=== PATIENT | female | born 1960 | race Caucasian/White ===

== ENCOUNTER 2016-08-19 04:17 | Observation (INO) | payer BC ==
[2016-08-19 05:04] LABS: Hematocrit 37 % (35-47); Hemoglobin 12.3 g/dl (12.0-16.0); Mean Corpuscular HGB Conc 33 g/dl (31-36); Mean Corpuscular Hemoglobin 30 pg (27-31); Mean Corpuscular Volume 91 fL (80-97); Mean Platelet Volume 9 um3 (7.4-10.4); Red Blood Count 4.07 10^6/ul (4.0-5.4); Red Cell Distribution Width 17 % (10.5-15); White Blood Count 4.6 10^3/ul (3.5-10.8)
[2016-08-19 05:07] LABS: BUN/Creatinine Ratio 13.8 (8-20); Calcium 9.2 mg/dL (8.6-10.3); EGFR Non-African American 52.1 (>60); Globulin 2.8 g/dL (2-4); Potassium 3.7 mmol/L (3.5-5.0); Total Bilirubin 0.5 mg/dL (0.2-1.0); Total Protein 6.8 g/dL (6.4-8.9)
[2016-08-19 05:09] LABS: Troponin I 0.01 ng/mL (<0.04)
--- NOTE | 2016-08-19 06:30 | ED ---
Jose Manuel Laurent SooYoung, scribed for Kain Ram on 08/19/16 at 0431 . HPI Chest Pain - HPI Summary HPI Summary: A 55 y/o F CL presents to ED with intermittent CP onset [employer]OR[employer]. She was given ASA from EMS. She states pain is still present in ED, describes it as "more dull " and "tightness." Denies: dizziness, SOB, pedal edema. She woke up to use the bathroom and went back to sleep. She had 3 episodes, lasting a few minutes each. Movements and deep breaths do not aggravate the pain. Neg FHx of cardiac problems. No PMHx of cardiovascular problems, HTN. - History of Current Complaint Chief Complaint: ED Hx Obtained From: Patient Onset/Duration: Still Present Timing: Intermittent, Lasting Minutes Pain Intensity: 7 Pain Scale Used: 0-10 Numeric Chest Pain Location: Diffuse Character: Tightness Associated Signs and Symptoms: Negative: Dizziness, Shortness of Breath, Calf Pain/Swelling - Allergy/Home Medications Allergies/Adverse Reactions: Allergies Allergy/AdvReac Type Severity Reaction Status Date / Time Ampicillin Allergy Unknown Unknown Verified 08/19/16 04:20 Reaction Details Cephalexin [From Keflex] Allergy Unknown Unknown Verified 08/19/16 04:20 Reaction Details Erythromycin Allergy Unknown Unknown Verified 08/19/16 04:20 Reaction Details Latex Allergy Unknown Unknown Verified 08/19/16 04:20 Reaction Details Penicillin G Allergy Unknown Unknown Verified 08/19/16 04:20 Reaction Details Home Medications: Home Medications Bupropion XL (NF) [Wellbutrin XL (NF)] 300 mg PO DAILY 08/19/16 [History Confirmed 08/19/16] Cholecalciferol [Vitamin D-3] 2,000 unit PO DAILY 08/19/16 [History Confirmed ] Cyanocobalamin [Vitamin B-12] 2,500 mcg SL DAILY 08/19/16 [History Confirmed ] Ferrous Sulfate Dried [Slow Release Iron] 45 mg PO DAILY 08/19/16 [History Confirmed 08/19/16] Fexofenadine HCl [Allergy 24-Hr] 180 mg PO DAILY 08/19/16 [History Confirmed ] Fluoxetine HCl [Prozac] 20 mg PO DAILY 08/19/16 [History Confirmed 08/19/16] PMH/Surg Hx/FS Hx/Imm Hx Previously Healthy: No Cardiovascular History: Reports: Hx Hypercholesterolemia GI History: Reports: Hx Gastroesophageal Reflux Disease Psychiatric History: Reports: Hx Depression Infectious Disease History: No Infectious Disease History: Denies: Traveled Outside the [place] in Last 30 Days - Family History Known Family History: Negative: Cardiac Disease - Social History Occupation: Employed Full-time Lives: Alone Review of Systems Positive: Chest Pain Negative: Shortness Of Breath Negative: Edema Neurological: Other - neg: dizziness All Other Systems Reviewed And Are Negative: Yes Physical Exam Triage Information Reviewed: Yes Vital Signs On Initial Exam: Initial Vitals Temp Pulse Resp BP Pulse Ox 97.8 F 64 16 148/90 95 08/19/16 04:18 08/19/16 04:18 08/19/16 04:18 08/19/16 04:18 08/19/16 04:18 Vital Signs Reviewed: Yes Appearance: Positive: Well-Appearing, No Pain Distress Skin: Positive: Warm, Skin Color Reflects Adequate Perfusion, Dry Head/Face: Positive: Normal Head/Face Inspection Eyes: Positive: EOMI, MAUREEN ENT: Positive: Normal ENT inspection Neck: Positive: Supple, Nontender Respiratory/Lung Sounds: Positive: Clear to Auscultation, Breath Sounds Present Cardiovascular: Positive: RRR, Pulses are Symmetrical in both Upper and Lower Extremities Abdomen Description: Positive: Nontender, Soft Bowel Sounds: Positive: Present Musculoskeletal: Positive: Normal, Strength/ROM Intact - 4xFROM Neurological: Positive: Normal, Sensory/Motor Intact, Alert, Oriented to Person Place, Time Diagnostics - Vital Signs Vital Signs Temp Pulse Resp BP Pulse Ox 08/19/16 04:18 97.8 F 64 16 148/90 95 - Laboratory Result Diagrams: 08/19/16 04:31 08/19/16 04:31 Lab Statement: Any lab studies that have been ordered have been reviewed, and results considered in the medical decision making process. - Radiology CXR Xray Interpretation: No Acute Changes Radiology Interpretation Completed By: ED Physician - EKG 1 EKG Rhythm: Sinus Rhythm EKG Interpretation: Q-waves in V2, V3 Chest Pain Course/Dx - Course Course Of Treatment: MDM: A 55 y/o F presents with intermittent CP. Given ASA by EMS on way to ED. EKG shows Q-waves in V2 and V3. CXR is nml. Troponin was 0.01. Spoke with Hospitalist, will admit. - Diagnoses Provider Diagnoses: chest pain ADDISON - Provider Notifications Discussed Care Of Patient With: Dr. Gonzalez, hospitalist Time Discussed With Above Provider: 04:32 Instructed by Provider To: Admit As Inpatient Discharge - Discharge Plan Condition: Stable Disposition: ADMITTED TO [facility] Referrals: Wilder Berrios MD [Primary Care Provider] - The documentation as recorded by the Jose Manuel crzu SooYoung accurately reflects the service I personally performed and the decisions made by Yo rose Emmanuel.
--- NOTE | 2016-08-19 07:59 | RAD ---
INDICATION: Chest pain COMPARISON: None. TECHNIQUE: Single AP portable view of the chest was obtained. FINDINGS: Image quality is compromised due to the relative inferiority of a portable chest x-ray. The heart and mediastinum exhibit normal size and contour. The lungs are grossly clear. There is no evidence of a large pleural effusion. Visualized bones are normal for the patient's age. IMPRESSION: No radiographic evidence for acute cardiopulmonary abnormality on this portable chest x-ray.
[2016-08-19] MEDS ORDERED: Ibuprofen TAB* 600 MG PO ONE (09:07)
--- NOTE | 2016-08-19 11:06 | RAD ---
HISTORY: Right upper quadrant pain COMPARISONS: March 14, 2006 CT TECHNIQUE: Multiple transverse and longitudinal ultrasound images were obtained of the right upper quadrant of the abdomen using grayscale and color Doppler imaging. FINDINGS: LIVER: The liver is slightly echogenic and coarse in echotexture, with decreased acoustic transmission. The liver is otherwise normal in shape, size, and contour. There is normal hepatopedal flow of the portal vein on Doppler imaging. BILIARY TREE: There is no intrahepatic or extrahepatic biliary dilatation. The common duct measures 0.2 cm. GALLBLADDER: The gallbladder is well-visualized. There is no cholelithiasis, gallbladder wall thickening, pericholecystic fluid, or sonographic Biswas sign. PANCREAS: The head of the pancreas is unremarkable. The tail of the pancreas is not well visualized secondary to overlying bowel gas. RIGHT KIDNEY: The right kidney is normal in shape, size, contour, and echogenicity. There is no hydronephrosis or nephrolithiasis. The right kidney measures 10.2 x 3.9 x 6 cm. AORTA AND IVC: The aorta and IVC are unremarkable. FLUID: There are no pleural effusions. There is no free fluid within the hepatorenal recess. OTHER FINDINGS: None. IMPRESSION: SLIGHTLY ECHOGENIC LIVER SUGGESTIVE OF FATTY INFILTRATION
[2016-08-19] MEDS: Enoxaparin(*) 40 MG/0.4 ML SYR SUBCUT SCH (16:03)
[2016-08-19] MEDS: BuPROPion XL* 300 MG TAB.XL PO SCH (16:03)
[2016-08-19] MEDS: FLUoxetine CAP* 20 MG PO SCH (16:03)
--- NOTE | 2016-08-19 17:39 | HP ---
HISTORY AND PHYSICAL: DATE OF ADMISSION: 08/19/16 PRIMARY CARE PROVIDER: Dr. Berrios. CHIEF COMPLAINT: Chest pain. HISTORY OF PRESENT ILLNESS: Ms. Arora is a 55-year-old female with a history of hyperlipidemia, obesity, depression, and seasonal allergies, who presents to the emergency room with complaints of chest pain. The patient states that her pain began initially around 2 a.m. when she was awoken from sleep with the pain. She got up, went to the bathroom and pain was noted. She then lied back down, believes that she fell back to sleep, but then woke up again and had pain again. The patient did this another two more times and continued to have episodes of pain. The pain duration was approximately 1 to 2 minutes each time she had the pain. She felt that it was a sharp, burst-like feeling in her right chest. She denied any associated shortness of breath, nausea, vomiting, or sweats. The patient states that she had chest pain in the past and was seen by Cardiology several years ago; however, that was for left-sided chest pain and now, this is right center chest pain. The patient does also state that when EMS picked her up, she was having pain more consistent in the right chest. She felt this almost as if there was a vise around the right lower chest. She believes that nitroglycerin paste helped with the pain. PAST MEDICAL HISTORY: 1. Hyperlipidemia. 2. Seasonal allergies. 3. Depression. PAST SURGICAL HISTORY: Neck abscess treatment. MEDICATIONS: 1. Vitamin D3 2000 units p.o. daily. 2. Vitamin B12 2500 mcg sublingual daily. 3. Ferrous sulfate slow release 45 mg p.o. daily. 4. Whitney 180 mg p.o. daily. 5. Wellbutrin XL 300 mg p.o. daily. 6. Prozac 20 mg p.o. daily. 7. Omeprazole 20 mg p.o. b.i.d. 8. Singulair 10 mg p.o. q.h.s. 9. Simvastatin 20 mg p.o. daily. ALLERGIES: PENICILLIN, KEFLEX, and ERYTHROMYCIN. FAMILY HISTORY: Dad at the age of 77 related to complications of an infection. He had an CA in his 70s. He also had history of heart failure. Mom is living, she is 77. Has a history of depression and hyperlipidemia. The patient has no biologic siblings. SOCIAL HISTORY: The patient is a life-long nonsmoker. She does state that her partner smokes. She drinks approximately 3 ounces of alcohol per day. 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 Her partner, Deneen Peterson, phone number [phone], is her healthcare proxy. She has no children of her own. REVIEW OF SYSTEMS: She denies any fevers, chills, or anorexia. She admits to chest pain as above. No edema. No palpitations. No cough. No shortness of breath. No nausea or vomiting. She does state that she had diarrhea this past Tuesday, but it has now resolved. No abdominal pain. No hematochezia. No hematuria. No dysuria. No focal weakness or sensory loss. No sudden changes in vision. No dysphagia. No joint pains or muscle pains out of ordinary. No rashes. She does admit to depression. PHYSICAL EXAMINATION GENERAL: The patient is a well-developed, obese, middle-aged female, sitting in the stretcher, in no acute distress. VITAL SIGNS: Blood pressure 132/82, pulse 67, respirations 15, temp 98.3, O2 sat 95% on room air. HEENT: Pupils are equal, they are round, they react to light. Extraocular muscles are intact. Oropharynx is clear. Oral mucosa is moist. NECK: There is no submandibular, cervical, or supraclavicular adenopathy. Thyroid is not enlarged. No thyroid nodules noted. PULMONARY: Lungs are clear to auscultation bilaterally. CARDIAC: Normal S1, S2. Regular rate and rhythm. No murmurs. There is no lower extremity edema. ABDOMEN: Bowel sounds present. Abdomen is soft, nontender, nondistended. MUSCULOSKELETAL: There is no cyanosis or clubbing of the digits. There is full active range of motion of all 4 extremities. NEURO: Cranial nerves II through XII are grossly intact. Sensation is intact to light touch throughout. Strength is 5/5 and symmetric, both upper and lower extremities bilaterally. PSYCH: The patient is alert. She is oriented x3. Affect appears appropriate. SKIN: Warm and dry. There are no rashes. DIAGNOSTIC STUDIES/LAB DATA: WBC 4.6, hemoglobin 12.3, hematocrit 37, platelets 140. INR 0.88. Sodium 137, potassium 3.7, chloride 105, CO2 24, BUN 15, creatinine 1.09, glucose 109, calcium 9.2. Bilirubin 0.5, AST 19, ALT 18, alk phos 52. Troponin 0.01. Albumin 4.0. EKG: Normal sinus rhythm without any acute ST-T wave abnormalities. Chest x-ray: No radiographic evidence for acute cardiopulmonary abnormality. Gallbladder ultrasound: Slightly echogenic liver suggestive of fatty infiltration. ASSESSMENT AND PLAN: Ms. Arora is a 55-year-old female with a history of hyperlipidemia, obesity, and late-onset family history of coronary artery disease, who presents to the emergency room with complaints of chest pain. 1. Chest pain: The patient's story is not completely suggestive of coronary artery disease; however, she does have risk factors for coronary artery disease. Plan will be to admit the patient to [facility] to obtain a stress test. The patient has already had two troponins that are 0.01 and stable. Once the stress test is completed, the patient will be able to be discharged home. However, if the patient has a positive stress test, Cardiology consultation will be requested. We will maintain her on her usual dose of her home statin. 2. Depression: The patient will be maintained on her usual doses of Wellbutrin XL and Prozac. 3. DVT prophylaxis: According to the Adult Thrombosis Prophylaxis Risk Factor Assessment Guide, the patient has a total risk factor score of 3 making her high risk. She will be placed on Lovenox 40 mg subcutaneous q.24 hours. 4. Code status is full and again, the patient's partner, Deneen Peterson, is her healthcare proxy. TIME SPENT: Sixty-five minutes was spent admitting this patient. CC: Dr. Berrios* [id number]/[facility] #: [id number] JENNIFER
[2016-08-19] MEDS ORDERED: Montelukast Sodium TAB* 10 MG PO SCH (21:00)
[2016-08-19] MEDS: Omeprazole CAP* 20 MG PO SCH (21:03)
[2016-08-20 03:54] VITALS: BP 113/75
[2016-08-20] MEDS ORDERED: Atorvastatin* 10 MG TAB PO SCH (09:00)
[2016-08-20] MEDS ORDERED: Influenza VAC *QUAD* 2016-17* 0.5 ML SYRINGE IM ONE (09:00)
[2016-08-20] MEDS ORDERED: Pneumococcal *Vac Polyvalent 0.5 ML VIAL IM ONE (09:00)
--- NOTE | 2016-08-20 09:25 | RAD ---
HISTORY: Chest pain COMPARISONS: None TECHNIQUE: A 2 day stress/rest myocardial perfusion study was performed, with exercise stress. The exercise portion was performed using the Harris protocol, for a total METs of 10.1. The stress portion was monitored by Dr. Gonzalez. Gated SPECT imaging was performed, with CT-based attenuation correction DOSE: Stress: Technetium 99m tetrofosmin, 25.23 millicuries, injected at 1:50 PM on 08/19/2016 Rest: Technetium 99m tetrofosmin, 25.65 millicuries, injected at 6:30 AM on 08/20/2016 Pharmacologic agent: None FINDINGS: CARDIAC MONITORING: Peak heart rate of 149 bpm, 90% of predicted. No EKG changes of ischemia with stress. EF: 72 %, 62% with stress TID: 0.9 MOTION: Normal motion, with normal wall thickening. PERFUSION: There is apical hypoperfusion consistent with physiologic apical thinning. An area of reversibility noted on the attenuation corrected polar images felt to represent misregistration artifact. OTHER: None IMPRESSION: NORMAL EJECTION FRACTION. PHYSIOLOGIC APICAL THINNING. ASSESSMENT: LOW RISK. Based on imaging criteria from ACC/AHA 2002. Guideline Update for the Management of Patient's with Chronic Stable Angina, table 23. Noninvasive Risk Stratification.
--- NOTE | 2016-08-20 10:10 | PN ---
Subjective Date of Service: 08/20/16 Interval History: Pt is feeling well. She had a mild episode of R sided chest pain that she described as a pinching feeling. She is anxious to go home. Objective Active Medications: Atorvastatin Calcium (Lipitor*) 10 mg PO DAILY [facility] Bupropion HCl (Bupropion Xl*) 300 mg PO DAILY [facility] Last Admin: 08/19/16 16:03 Dose: 300 mg Enoxaparin Sodium (Lovenox(*)) 40 mg SUBCUT Q24H [facility] Last Admin: 08/19/16 16:03 Dose: 40 mg Fluoxetine HCl (Prozac Cap*) 20 mg PO DAILY [facility] Last Admin: 08/19/16 16:03 Dose: 20 mg Montelukast Sodium (Singulair Tab*) 10 mg PO BEDTIME [facility] Last Admin: 08/19/16 21:03 Dose: 10 mg Omeprazole (Prilosec Cap*) 20 mg PO BID [facility] Last Admin: 08/19/16 21:03 Dose: 20 mg Vital Signs 08/19/16 08/19/16 08/19/16 10:30 11:00 11:30 Temperature Pulse Rate 61 64 59 Respiratory 13 16 11 Rate Blood Pressure 119/62 134/75 144/85 (mmHg) O2 Sat by Pulse 94 96 94 Oximetry 08/19/16 08/19/16 08/19/16 12:00 12:30 12:51 Temperature 98.3 F Pulse Rate 65 61 63 Respiratory 17 11 16 Rate Blood Pressure 135/88 136/102 133/77 (mmHg) O2 Sat by Pulse 95 96 99 Oximetry 08/19/16 08/19/16 08/19/16 15:20 20:35 23:25 Temperature 98.2 F 98.5 F 98.2 F Pulse Rate 65 66 66 Respiratory 16 16 16 Rate Blood Pressure 131/83 128/80 126/82 (mmHg) O2 Sat by Pulse 97 98 97 Oximetry 08/20/16 08/20/16 03:38 07:44 Temperature 97.8 F Pulse Rate 69 Respiratory 16 16 Rate Blood Pressure 113/75 (mmHg) O2 Sat by Pulse 97 Oximetry Oxygen Devices in Use Now: None Appearance: Middle aged female sitting in a chair, NAD Eyes: No Scleral Icterus Ears/Nose/Mouth/Throat: Mucous Membranes Moist Respiratory: Symmetrical Chest Expansion and Respiratory Effort, Clear to Auscultation Cardiovascular: NL Sounds; No Murmurs; No JVD, RRR, No Edema Abdominal: NL Sounds; No Tenderness; No Distention Extremities: No Clubbing, Cyanosis Skin: No Rash or Ulcers, No Nodules or Sclerosis Neurological: Alert and Oriented x 3 Result Diagrams: 08/19/16 04:31 08/19/16 04:31 Assess/Plan/Problems-Billing Ms Arora is a 55 yo F who has a h/o HLD, obesity and family h/o CAD who presented to the ER with c/o chest pain. - Patient Problems (1) Chest pain Current Visit: Yes Status: Acute Code(s): R07.9 - CHEST PAIN, UNSPECIFIED SNOMED Code(s): 29634667 Comment: She ruled out for [place] and her stress test was negative for ischemia. Likely musculoskeletal pain. Possibly related to cross country skiing the day prior to admission. (2) HLD (hyperlipidemia) Current Visit: Yes Status: Acute Code(s): E78.5 - HYPERLIPIDEMIA, UNSPECIFIED SNOMED Code(s): 23050053 Comment: Continue home statin. (3) Depression Current Visit: Yes Status: Acute Code(s): F32.9 - MAJOR DEPRESSIVE DISORDER , SINGLE EPISODE, UNSPECIFIED SNOMED Code(s): 44497096 Comment: Continue home medication regimen. (4) DVT prophylaxis Current Visit: Yes Status: Acute Code(s): GRX1351 - SNOMED Code(s): 496604190 Comment: lovenox (5) Full code status Current Visit: Yes Status: Acute Code(s): Z78.9 - OTHER SPECIFIED HEALTH STATUS SNOMED Code(s): 882629630 Status and Disposition: d/c home
[2016-08-20] MEDS: Omeprazole CAP* 20 MG PO SCH (11:20)
[2016-08-20] MEDS: FLUoxetine CAP* 20 MG PO SCH (11:20)
[2016-08-20] MEDS: BuPROPion XL* 300 MG TAB.XL PO SCH (11:20)
[2016-08-20] MEDS: Enoxaparin(*) 40 MG/0.4 ML SYR SUBCUT SCH (12:34)
--- NOTE | 2016-08-21 06:04 | DS ---
DISCHARGE SUMMARY: DATE OF ADMISSION: 08/19/16 DATE OF DISCHARGE: 08/20/16 PRIMARY CARE PROVIDER: Dr. Berrios PRINCIPAL DIAGNOSIS: Noncardiac chest pain. SECONDARY DIAGNOSES: 1. Hyperlipidemia. 2. Obesity. 3. Depression. DISCHARGE MEDICATIONS: 1. Vitamin D3 2000 units p.o. daily. 2. Vitamin B12 2500 mcg sublingual daily. 3. Ferrous sulfate slow release 45 mg p.o. daily. 4. Whitney 24-Hour 180 mg p.o. daily. 5. Wellbutrin XL 300 mg p.o. daily. 6. Prozac 20 mg p.o. daily. 7. Omeprazole 20 mg p.o. b.i.d. 8. Singulair 10 mg p.o. q.h.s. 9. Simvastatin 20 mg p.o. daily. HOSPITAL COURSE: Ms. Arora is a 55-year-old female with history of hyperlipidemia and obesity as well as a family history of coronary artery disease in her father at a later age, who presented to the emergency room with complaints of chest pain. The patient of note had been out cross-country skiing the day prior to admission. She described right-sided chest discomfort. Additionally, she felt discomfort in her right upper abdomen that she described as a vice. The patient was admitted and ruled out for an acute [place]. She underwent an exercise nuclear stress test that did not reveal any evidence of ischemia. At this point, the patient is felt to be stable for discharge home. Of note, the patient also had a gallbladder ultrasound which was negative for any gallbladder issues; however, does question fatty infiltration of the liver. At this point, it is felt that the patient's chest pain is noncardiac in nature. She will follow up with her primary and return to the emergency room if she has any concerning symptoms. FOLLOWUP CONCERNS: The patient is being discharged home today, 08/20/16. ACTIVITY LEVEL: As tolerated. DIET: Low fat. CONDITION ON DISCHARGE: Stable. The patient should follow up with Dr. Berrios in the next 5-7 days. TIME SPENT: Twenty-five minutes were spent discharging this patient. CC: Dr. Berrios* [id number]/[facility] #: [id number] MTDD
== END 2016-08-20 12:00 | disposition home or self-care (01) ==
LOC: ED 04:17 → MEDTELE 09:34
PROVIDERS: ADMIT Hospitalist; ATTEND Hospitalist
DX: R07.9 Chest pain, unspecified (principal); E78.5 Hyperlipidemia, unspecified; E66.9 Obesity, unspecified; F32.9 Major depressive disorder, single episode, unspecified; F17.210 Nicotine dependence, cigarettes, uncomplicated; Z88.0 Allergy status to penicillin; Z88.1 Allergy status to other antibiotic agents; Z91.040 Latex allergy status; Z79.899 Other long term (current) drug therapy; R94.31 Abnormal electrocardiogram [ECG] [EKG]; Z23 Encounter for immunization
CPT/HCPCS: 36415; 71010; 76705; 78452; 80053; 83605; 83880; 84484; 85025; 85610; 85730; 90471; 90472; 90686; 90732; 93005; 96372; 99284; A9270-GY; A9502; G0008; G0009; G0378; J1650

== ENCOUNTER 2017-12-01 14:07 | Emergency (ER) | payer BC, OTHER ==
[2017-12-01 15:37] LABS: ABS Basophils 0 10^3/ul (0-0.2); ABS Eosinophils 0.1 10^3/ul (0-0.6); ABS Lymphocytes 1.6 10^3/ul (1.0-4.8); ABS Monocytes 0.3 10^3/ul (0-0.8); ABS Nucleated RBC 0 10^3/ul; Eosinophil % 2.7 % (0-6); Hematocrit 42 % (35-47); Hemoglobin 14.4 g/dl (12.0-16.0); Mean Corpuscular HGB Conc 34 g/dl (31-36); Mean Corpuscular Hemoglobin 32 pg (27-31); Mean Corpuscular Volume 95 fL (80-97); Nucleated Red Blood Cells % 0; Platelet Count 166 10^3/ul (150-450); Red Blood Count 4.45 10^6/ul (4.0-5.4); Red Cell Distribution Width 14 % (10.5-15)
[2017-12-01 15:55] LABS: EGFR Non-African American 57.1 (>60)
[2017-12-01 17:41] VITALS: BP 132/67
--- NOTE | 2017-12-04 19:00 | ED ---
Katia Laurent Gabriel, scribed for Jd Goodman MD on 12/01/17 at 1636 . Palpitations / Dysrhythmia - HPI Summary HPI Summary: This patient is a 57 year old F presenting to [facility] with a chief complaint of chest tightness for the last two weeks. She was sent from pulmonology for an irregular heart rate. The patient was at one of her sleep apnea checkups once they mentioned her heart rate irregularity she c/o chest tightness. The patient rates the pain 0/10 in severity. Patient reports back spasms and increased stress. Pt denies cough, chills, and abd pain. She has been drinking energy drinks to stay awake for her overnight work. No cardiac history. Hx HLD. - History of Current Complaint Chief Complaint: EDDysrhythmPalp Time Seen by Provider: 12/01/17 16:23 Hx Obtained From: Patient Onset/Duration: Still Present Timing: Constant Severity Initially: Mild Severity Currently: Mild Character: Irregular Associated Signs & Symptoms: Chest Pain - tightness - Allergy/Home Medications Allergies/Adverse Reactions: Allergies Allergy/AdvReac Type Severity Reaction Status Date / Time MS Ampicillin [Ampicillin] Allergy Unknown Unknown Verified 08/19/16 04:20 Reaction Details MS Cephalexin [From Keflex] Allergy Unknown Unknown Verified 08/19/16 04:20 Reaction Details MS Erythromycin Allergy Unknown Unknown Verified 08/19/16 04:20 [Erythromycin] Reaction Details MS Latex [Latex] Allergy Unknown Unknown Verified 08/19/16 04:20 Reaction Details MS Penicillin G Allergy Unknown Unknown Verified 08/19/16 04:20 [Penicillin G] Reaction Details Home Medications: Home Medications Cholecalciferol (Vitamin D3) [Vitamin D3] 2,000 unit PO DAILY 12/01/17 [History Confirmed 12/01/17] Cyanocobalamin (Vitamin B-12) [Vitamin B-12] 2,500 mcg SL DAILY 12/01/17 [ History Confirmed 12/01/17] Ferrous Sulfate [Slow Release Iron] 143 mg PO DAILY 12/01/17 [History Confirmed 12/01/17] Fexofenadine (NF) [Whitney 180 (NF)] 180 mg PO DAILY 12/01/17 [History Confirmed 12/01/17] Glucosam/Chond/Collagen/Hyalur [Glucosamine Chondroitin/C] 2 cap PO DAILY [History Confirmed 12/01/17] Simvastatin TAB(NF) [Zocor(NF)] 20 mg PO DAILY 12/01/17 [History Confirmed 12/01] PMH/Surg Hx/FS Hx/Imm Hx Endocrine/Hematology History: Denies: Hx Anemia, Hx Unexplained Bleeding Cardiovascular History: Reports: Hx Hypercholesterolemia, Other Cardiovascular Problems/Disorders - HYPERCHOLESTEROLEMIA Denies: Hx Angina, Hx Coronary Artery Disease, Hx Myocardial Infarction, Hx Valvular Heart Disease Respiratory History: Reports: Hx Sleep Apnea - undiagnosed Denies: Hx Asthma, Hx Chronic Obstructive Pulmonary Disease (COPD) GI History: Reports: Hx Gastroesophageal Reflux Disease Sensory History: Reports: Hx Contacts or Glasses Opthamlomology History: Reports: Hx Contacts or Glasses Psychiatric History: Reports: Hx Depression - Surgical History Surgery Procedure, Year, and Place: abcess in throat removed approx 2005 Infectious Disease History: No Infectious Disease History: Denies: Traveled Outside the [place] in Last 30 Days - Family History Known Family History: Negative: Cardiac Disease, Respiratory Disease, Seizure Disorder - Social History Occupation: Employed Full-time Alcohol Use: Rare Substance Use Type: Reports: None Hx Tobacco Use: No Smoking Status (MU): Never Smoked Tobacco Review of Systems Constitutional: Other - increasted stress Negative: Chills Positive: Palpitations, Chest Pain Negative: Cough Negative: Abdominal Pain Positive: Other - back spasms . Negative: Edema All Other Systems Reviewed And Are Negative: Yes Physical Exam Triage Information Reviewed: Yes Vital Signs On Initial Exam: Initial Vitals Temp Pulse Resp BP Pulse Ox 97.1 F 72 16 119/75 96 12/01/17 14:10 12/01/17 14:10 12/01/17 14:10 12/01/17 14:10 12/01/17 14:10 Vital Signs Reviewed: Yes Appearance: Positive: Well-Appearing, No Pain Distress Skin: Positive: Warm, Skin Color Reflects Adequate Perfusion, Dry Head/Face: Positive: Normal Head/Face Inspection Eyes: Positive: Normal, EOMI, MAUREEN, Conjunctiva Clear ENT: Positive: Normal ENT inspection, Hearing grossly normal, Pharynx normal Neck: Positive: Supple, Nontender, Other: - no JVD Respiratory/Lung Sounds: Positive: Clear to Auscultation, Breath Sounds Present , Decreased Breath Sounds Cardiovascular: Positive: Normal, RRR, Pulses are Symmetrical in both Upper and Lower Extremities - regular and strong Abdomen Description: Positive: Nontender, No Organomegaly, Soft Bowel Sounds: Positive: Present Musculoskeletal: Positive: Normal, Strength/ROM Intact Neurological: Positive: Normal, Sensory/Motor Intact, Alert, Oriented to Person Place, Time, CN Intact II-III, Reflexes Intact Psychiatric: Positive: Normal, Affect/Mood Appropriate Diagnostics - Vital Signs Vital Signs Temp Pulse Resp BP Pulse Ox 12/01/17 14:10 97.1 F 72 16 119/75 96 - Laboratory Lab Results: Lab Results 12/01/17 12/01/17 12/01/17 Range/Units 15:26 15:26 15:26 WBC 4.0 (3.5-10.8) 10^3/ul RBC 4.45 (4.0-5.4) 10^6/ul Hgb 14.4 (12.0-16.0) g/dl Hct 42 (35-47) % MCV 95 (80-97) fL MCH 32 H (27-31) pg MCHC 34 (31-36) g/dl RDW 14 (10.5-15) % Plt Count 166 (150-450) 10^3/ul MPV 9.0 (7.4-10.4) um3 Neut % (Auto) 50.3 (38-83) % Lymph % (Auto) 39.0 (25-47) % [place] % (Auto) 7.4 H (0-7) % Eos % (Auto) 2.7 (0-6) % Baso % (Auto) 0.6 (0-2) % Absolute Neuts (auto) 2.0 (1.5-7.7) 10^3/ul Absolute Lymphs (auto) 1.6 (1.0-4.8) 10^3/ul Absolute Monos (auto) 0.3 (0-0.8) 10^3/ul Absolute Eos (auto) 0.1 (0-0.6) 10^3/ul Absolute Basos (auto) 0 (0-0.2) 10^3/ul Absolute Nucleated RBC 0 10^3/ul Nucleated RBC % 0 Sodium 140 (139-145) mmol/L Potassium Pending Chloride 103 (101-111) mmol/L Carbon Dioxide 28 (22-32) mmol/L Anion Gap Pending BUN 14 (6-24) mg/dL Creatinine 1.00 H (0.51-0.95) mg/dL Est GFR ( Amer) 73.5 (>60) Est GFR (Non-Af Amer) 57.1 (>60) BUN/Creatinine Ratio 14.0 (8-20) Glucose 101 H (70-100) mg/dL Lactic Acid 1.7 (0.5-2.0) mmol/L Calcium 9.9 (8.6-10.3) mg/dL Total Bilirubin 0.50 (0.2-1.0) mg/dL AST Pending ALT 26 (7-52) U/L Alkaline Phosphatase 57 (34-104) U/L Troponin I 0.00 (<0.04) ng/mL Total Protein 7.7 (6.4-8.9) g/dL Albumin 4.7 (3.2-5.2) g/dL Globulin 3.0 (2-4) g/dL Albumin/Globulin Ratio 1.6 (1-3) Pertinent Lab Values Are: WNL Except: - mildly high creat Result Diagrams: 12/01/17 15:26 12/01/17 15:26 Lab Statement: Any lab studies that have been ordered have been reviewed, and results considered in the medical decision making process. - EKG 14:11 Cardiac Rate: NL EKG Rhythm: Sinus Rhythm - NSR at 68 BPM P waves and QRS complex and T waves are within normal limits, T waves and intervals are normal, no ischemic changes Course/Dx - Diagnoses Provider Diagnoses: Heart palpitations Discharge - Sign-Out/Discharge Documenting (check all that apply): Discharge/Admit/Transfer - Discharge Plan Condition: Good Disposition: HOME Patient Education Materials: A-fib (Atrial Fibrillation) (ED) Referrals: Wilder Berrios MD [Primary Care Provider] - Tesfaye Theodore MD [Medical Doctor] - Additional Instructions: Please call [phone] tomorrow and explain you were in the ED and the doctor here thought you needed to be scheduled for a Holter monitor. I spoke with Dr. Haider, the exterminator [employer] worker, about this. I suspect you don't have atrial fibrillation, but it can come and go and be asymptomatic, so I think a Holter monitor test would settle the issue. - Billing Disposition and Condition Condition: GOOD Disposition: HOME The documentation as recorded by the Katia cruz Gabriel accurately reflects the service I personally performed and the decisions made by me, Jd Goodman MD.
== END 2017-12-01 17:41 | disposition home or self-care (01) ==
LOC: ED 14:07
DX: R00.2 Palpitations (principal); E78.00 Pure hypercholesterolemia, unspecified; K21.9 Gastro-esophageal reflux disease without esophagitis; F32.9 Major depressive disorder, single episode, unspecified; Z88.0 Allergy status to penicillin; Z88.1 Allergy status to other antibiotic agents; Z91.040 Latex allergy status
CPT/HCPCS: 36415; 80053; 83605; 84484; 85025; 93005; 99283

== ENCOUNTER 2019-04-24 14:57 | Emergency (ER) | payer OTHER ==
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
[2019-04-24] MEDS: Acetaminophen TAB* 325 MG PO ONE (16:50)
[2019-04-24 17:59] VITALS: BP 139/94
== END 2019-04-24 17:59 | disposition home or self-care (01) ==
LOC: ED 14:57
DX: R10.9 Unspecified abdominal pain (principal); V43.53XA Car driver injured in collision with pick-up truck in traffic accident, initial encounter; Y92.410 Unspecified street and highway as the place of occurrence of the external cause; E78.00 Pure hypercholesterolemia, unspecified; K21.9 Gastro-esophageal reflux disease without esophagitis; F32.9 Major depressive disorder, single episode, unspecified; Z88.0 Allergy status to penicillin; Z88.1 Allergy status to other antibiotic agents; Z91.040 Latex allergy status; Z79.899 Other long term (current) drug therapy
CPT/HCPCS: 99282; A9270-GY

== ENCOUNTER 2019-08-29 14:35 | Emergency (ER) | payer OTHER ==
[2019-08-29 15:30] LABS: ABS Eosinophils 0.1 10^3/ul (0-0.6); ABS Lymphocytes 1.4 10^3/ul (1.0-4.8); ABS Monocytes 0.2 10^3/ul (0-0.8); ABS Neutrophils 1.9 10^3/ul (1.5-7.7); Hematocrit 38 % (35-47); Hemoglobin 13.2 g/dL (12.0-16.0); Lymphocyte % 38.9 %; Mean Corpuscular HGB Conc 35 g/dL (31-36); Mean Corpuscular Hemoglobin 33 pg (27-31); Mean Corpuscular Volume 95 fL (80-97); Mean Platelet Volume 8.7 fL (7.4-10.4); Platelet Count 183 10^3/uL (150-450); Red Blood Count 3.98 10^6 /uL (3.70-4.87); Red Cell Distribution Width 15 % (10-15); White Blood Count 3.6 10^3/uL (3.5-10.8)
[2019-08-29 15:58] LABS: BUN/Creatinine Ratio 10.1 (8-20); Calcium 9.2 mg/dL (8.6-10.3); EGFR African American 69.7 (>60); EGFR Non-African American 57.6 (>60); Magnesium 1.9 mg/dL (1.9-2.7)
--- NOTE | 2019-08-29 15:59 | ED ---
Palpitations / Dysrhythmia - HPI Summary HPI Summary: Patient is a 58 y/o F presenting to [facility] with complaints of palpitations. She characterizes these palpitations as irregular and racing. Palpitations have been present since around 0900 this morning. Patient states that they have been constant since onset and are still present. CP, N/V/D, recent weight changes are denied. She notes that she has been feeling constipated. No recent additional stress or changes to routine noted. Patient is on bupropion for depression and a statin medication for HLD. Hx of GERD noted as well. She is a non-smoker, consumes 2 alcoholic drinks daily, and denies substance usage. Home medications and allergies are reviewed. - History of Current Complaint Chief Complaint: EDDysrhythmPalp Time Seen by Provider: 08/29/19 15:49 Hx Obtained From: Patient Onset/Duration: Lasting Hours, Still Present Timing: Constant Character: Fast, Irregular Aggravating: Nothing Associated Signs & Symptoms: Negative - Allergy/Home Medications Allergies/Adverse Reactions: Allergies Allergy/AdvReac Type Severity Reaction Status Date / Time ampicillin Allergy Unknown Verified 04/24/19 15:22 Reaction Details cephalexin Allergy Unknown Verified 04/24/19 15:22 Reaction Details erythromycin base Allergy Unknown Verified 04/24/19 15:22 [From Erythrocin] Reaction Details latex Allergy Unknown Verified 04/24/19 15:22 Reaction Details penicillin G Allergy Unknown Verified 04/24/19 15:22 Reaction Details PMH/Surg Hx/FS Hx/Imm Hx Endocrine/Hematology History: Denies: Hx Anemia, Hx Unexplained Bleeding Cardiovascular History: Reports: Hx Hypercholesterolemia, Other Cardiovascular Problems/Disorders - HYPERCHOLESTEROLEMIA Denies: Hx Angina, Hx Coronary Artery Disease, Hx Myocardial Infarction, Hx Valvular Heart Disease Respiratory History: Reports: Hx Sleep Apnea - undiagnosed Denies: Hx Asthma, Hx Chronic Obstructive Pulmonary Disease (COPD) GI History: Reports: Hx Gastroesophageal Reflux Disease Sensory History: Reports: Hx Contacts or Glasses Opthamlomology History: Reports: Hx Contacts or Glasses Psychiatric History: Reports: Hx Depression - Surgical History Surgery Procedure, Year, and Place: abcess in throat removed approx 2005 Infectious Disease History: No Infectious Disease History: Denies: Traveled Outside the [place] in Last 30 Days - Family History Known Family History: Negative: Cardiac Disease, Respiratory Disease, Seizure Disorder - Social History Alcohol Use: Daily Alcohol Amount: 2 drinks daily Substance Use Type: Reports: None Hx Tobacco Use: No Smoking Status (MU): Never Smoked Tobacco Review of Systems Constitutional: Other - negative - recent weight changes Positive: Palpitations. Negative: Chest Pain Gastrointestinal: Other - positive - constipation Negative: Vomiting, Diarrhea, Nausea All Other Systems Reviewed And Are Negative: Yes Physical Exam - Summary Physical Exam Summary: Constitutional: Well-developed, Well-nourished, Alert. (-) Distressed Skin: Warm, Dry HENT: Normocephalic; Atraumatic Eyes: Conjunctiva normal Neck: Musculoskeletal ROM normal neck. (-) JVD, (-) Stridor, (-) Tracheal deviation Cardio: Rhythm regular, rate normal, Heart sounds normal; Intact distal pulses; Radial pulses are 2+ and symmetric. (-) Murmur Pulmonary/Chest wall: Effort normal. (-) Respiratory distress, (-) Wheezes, (-) Rales Abd: Soft, (-) tenderness, (-) Distension, (-) Guarding, (-) Rebound Musculoskeletal: (-) Edema Lymph: (-) Cervical adenopathy Neuro: Alert, Oriented x3 Psych: Mood and affect Normal Triage Information Reviewed: Yes Vital Signs On Initial Exam: Initial Vitals Temp Pulse Resp BP Pulse Ox 97.5 F 75 19 166/126 98 08/29/19 14:38 08/29/19 14:38 08/29/19 14:38 08/29/19 14:38 08/29/19 14:38 Vital Signs Reviewed: Yes Procedures - Sedation Patient Received Moderate/Deep Sedation with Procedure: No Diagnostics - Vital Signs Vital Signs Temp Pulse Resp BP Pulse Ox 08/29/19 14:38 97.5 F 75 19 166/126 98 - Laboratory Lab Results: Lab Results 08/29/19 Range/Units 15:00 WBC 3.6 (3.5-10.8) 10^3/uL RBC 3.98 (3.70-4.87) 10^6 /uL Hgb 13.2 (12.0-16.0) g/dL Hct 38 (35-47) % MCV 95 (80-97) fL MCH 33 H (27-31) pg MCHC 35 (31-36) g/dL RDW 15 (10-15) % Plt Count 183 (150-450) 10^3/uL MPV 8.7 (7.4-10.4) fL Neut % (Auto) 51.8 % Lymph % (Auto) 38.9 % [place] % (Auto) 5.9 % Eos % (Auto) 3.0 % Baso % (Auto) 0.4 % Absolute Neuts (auto) 1.9 (1.5-7.7) 10^3/ul Absolute Lymphs (auto) 1.4 (1.0-4.8) 10^3/ul Absolute Monos (auto) 0.2 (0-0.8) 10^3/ul Absolute Eos (auto) 0.1 (0-0.6) 10^3/ul Absolute Basos (auto) 0.0 (0-0.2) 10^3/ul Absolute Nucleated RBC 0.0 10^3/ul Nucleated RBC % 0.0 Result Diagrams: 08/29/19 15:00 08/29/19 15:00 Lab Statement: Any lab studies that have been ordered have been reviewed, and results considered in the medical decision making process. - EKG 1446 Cardiac Rate: NL - rate of 77 BPM EKG Rhythm: Sinus Rhythm Ectopy: PVCs Summary of EKG Findings: EKG showed NSR with rate of 77 BPM, multiple PVCs, no STEMI. ED physician has reviewed and interpreted this EKG. Course/Dx - Course Course Of Treatment: Patient is here with palpitations. Patient was in normal sinus rhythm upon arrival with multiple PVCs. Patient was monitored on the monitor with no occurrence of an arrhythmia. Patient had blood performed including a magnesium level and TSH which were grossly unremarkable. Patient is discharged with cardiology follow-up for possible Holter monitor - Diagnoses Provider Diagnoses: PVCs (premature ventricular contractions), Palpitations Discharge ED - Sign-Out/Discharge Documenting (check all that apply): Patient Departure - discharge - Discharge Plan Condition: Stable Disposition: HOME Patient Education Materials: Heart Palpitations (ED), Premature Ventricular Contractions (ED) Referrals: Sandi Trevino NP [Primary Care Provider] - 3 Days Delta Gonzalez MD [Medical Doctor] - 3 Days Additional Instructions: FOLLOW UP WITH DR. GONZALEZ FOR HOLTER MONITOR. PLEASE RETURN TO ED FOR CHEST PAIN , SEVERE DIFFICULTY BREATHING, OR OTHER CONCERNING SYMPTOMS. - Billing Disposition and Condition Condition: STABLE Disposition: Home - Attestation Statements Document Initiated by Kitibcarrie: Yes Documenting Scribe: KATE SIEGEL Provider For Whom Kitibcarrie is Documenting (Include Credential): SHARIFA JARQUIN MD Scribe Attestation: I, KATE SIEGEL, scribed for SHARIFA JARQUIN MD on 08/29/19 at 2049. Scribe Documentation Reviewed: Yes Provider Attestation: The documentation as recorded by the KATE cruz accurately reflects the service I personally performed and the decisions made by me, SHARIFA JARQUIN MD Status of Scribe Document: Viewed
[2019-08-29 16:04] LABS: TSH (Thyroid Stimulating Horm) 1.02 mcIU/mL (0.34-5.60)
[2019-08-29 16:56] VITALS: BP 136/97
== END 2019-08-29 16:54 | disposition home or self-care (01) ==
LOC: ED 14:35
DX: I49.3 Ventricular premature depolarization (principal); E78.00 Pure hypercholesterolemia, unspecified; F32.9 Major depressive disorder, single episode, unspecified; E78.5 Hyperlipidemia, unspecified; K21.9 Gastro-esophageal reflux disease without esophagitis; Z79.899 Other long term (current) drug therapy; Z88.0 Allergy status to penicillin; Z88.1 Allergy status to other antibiotic agents; Z91.040 Latex allergy status
CPT/HCPCS: 36415; 80048; 83735; 84443; 85025; 93005; 99282

== ENCOUNTER 2019-11-11 10:14 | Emergency (ER) | payer OTHER ==
--- OUTSIDE RECORDS SUMMARY | 2019-11-11 10:20 | XMS REPORT | Continuity of Care Document ---
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-BC Abnormal foetal heart beat, not Selma Lopez DNP, RN, Onset: 12/01/2017 clear if noted before OR after onset GAMBLING COUNSELLOR-BC of labour in liveborn infant Body mass index 30+ - obesity Selma Lopez DNP, RN, Onset: 12/01/2017 GAMBLING COUNSELLOR-BC Social History Type Date Description Comments Sex Unknown Tobacco Use Start: Unknown Never Smoked Cigarettes Smoking Status Reviewed: 10/04/19 Never Smoked Cigarettes ETOH Use Drinks 2 Alcoholic 2 alcohol beverages Beverages Per Week per day Tobacco Use Start: Unknown Patient has never Exposed to second smoked hand smoke Recreational Drug Use Denies Drug Use Exercise Type/Frequency Exercises regularly Allergies, Adverse Reactions, Alerts Active Allergies Reaction Severity Comments Date Penicillin Hives, swelling 05/10/2017 Keflex 05/10/2017 Erythromycin Nausea and Vomiting 05/10/2017 Latex Hives, itching, swelling 05/10/2017 [place] Juice Facial swelling, Itching, lip 10/04/2019 swelling/itching Medications Active Medications SIG Qnty Indications Ordering Provider Date Metoprolol Succinate 1 by mouth every 30tabs I47.1 Danny Jensen, 2019 ER day DO FACC 25mg Tablets ER 24HR Bupropion HCL ER (XL) 1 by mouth every Unknown day 300mg Tablets ER 24HR Montelukast Sodium 1 by mouth every Unknown 10mg day Tablets Simvastatin 1 by mouth every Unknown 20mg Tablets day Iron Slow Release take one Unknown capsule/tablet 143(45Fe) mg Tablets daily by mouth ER Vitamin B12 1 by mouth every Unknown 2500mcg day Tablets ER Vitamin D3 1 by mouth every Unknown 1000Unit day Capsules Fexofenadine HCL once daily Unknown 180mg Tablets Melatonin 1 cap at bedtime Unknown 5mg Capsules Omeprazole 1 by mouth every Unknown 20mg Capsules day DR Fluoxetine HCL 2 Caps by mouth Unknown 20mg every day Capsules Abc Complete Senior 1 Tab PO qd Unknown Womens 50+ Tablets ALL Day Allergy 1 by mouth every Unknown 10mg dayPRN Capsules Allergy Relief as needed Unknown 25mg Capsules History Medications Abiraterone Acetate 4 tabs by mouth Danny Jensen, 09/19/2019 - 250mg every day DO [facility] 09/18/2019 Tablets Paroxetine HCL 1 by mouth every 30tabs Danny Jensen, 09/19/2019 - 20mg day DO [facility] 09/18/2019 Tablets Immunizations Description No Information Available Vital Signs Date Vital Result Comment 10/04/2019 8:02am Height 66 inches 5'6" Weight 203.00 lb Heart Rate 64 /min BP Systolic 109 mmHg BP Diastolic 73 mmHg Body Temperature 97.6 F O2 % BldC Oximetry 99 % BMI (Body Mass Index) 32.8 kg/m2 09/19/2019 12:54pm Height 66 inches 5'6" Weight 202.00 lb no shoes Heart Rate 65 /min BP Systolic 128 mmHg rue reg cuff BP Diastolic 80 mmHg rue reg cuff BP Systolic Sitting 128 mmHg lue reg cuff BP Diastolic Sitting 80 mmHg lue reg cuff BP Systolic Standing 130 mmHg lue reg cuff BP Diastolic Standing 82 mmHg lue reg cuff Respiratory Rate 14 /min BMI (Body Mass Index) 32.6 kg/m2 Ejection Fraction none Results Test Acquired Date Facility Test Result H/L Range Note CBC Auto 08/29/2019 [facility] White Blood 3.6 10^3/uL Normal 3.5-10.[address] [place] [address] [phone] Red Blood Count 3.98 10^6/uL Normal 3.70-4.87 Hemoglobin 13.2 g/dL Normal 12.0-16.0 Hematocrit 38 % Normal 35-47 Mean Corpuscular Volume 95 fL Normal 80-97 Mean Corpuscular Hemoglobin 33 pg High 27-31 Mean Corpuscular HGB Conc 35 g/dL Normal 31-36 Red Cell Distribution Width 15 % Normal 10-15 Platelet Count 183 10^3/uL Normal 150-450 Mean Platelet Volume 8.7 fL Normal 7.4-10.4 Abs Neutrophils 1.9 10^3/uL Normal 1.5-7.7 Abs Lymphocytes 1.4 10^3/uL Normal 1.0-4.8 Abs Monocytes 0.2 10^3/uL Normal 0-0.8 Abs Eosinophils 0.1 10^3/uL Normal 0-0.6 Abs Basophils 0.0 10^3/uL Normal 0-0.2 Abs Nucleated RBC 0.0 10^3/uL Granulocyte % 51.8 % Lymphocyte % 38.9 % Monocyte % 5.9 % Eosinophil % 3.0 % Basophil % 0.4 % Nucleated Red Blood Cells % 0.0 Basic Metabolic 08/29/2019 [facility] Sodium 139 mmol/L Normal 135-145 Panel [address] [place] [address] [phone] Potassium 4.0 mmol/L Normal 3.5-5.0 Chloride 105 mmol/L Normal 101-111 Co2 Carbon Dioxide 26 mmol/L Normal 22-32 Anion Gap 8 mmol/L Normal 2-11 Glucose 86 mg/dL Normal 70-100 Blood Urea Nitrogen 10 mg/dL Normal 6-24 Creatinine 0.99 mg/dL High 0.51-0.95 BUN/Creatinine Ratio 10.1 Normal 8-20 Calcium 9.2 mg/dL Normal 8.6-10.3 Egfr Non- 57.6 >60 Egfr 69.7 >60 1 Laboratory test 08/29/2019 [facility] Magnesium 1.9 mg/dL Normal 1.9-2.7 finding [address] [place] [address] [phone] TSH (Thyroid Stim Horm) 1.02 mcIU/mL Normal 0.34-5.60 1 Because ethnic data is not always readily available, this report includes an eGFR for both -Americans and non- Americans. The National Kidney Disease Education Program (NKDEP) does not endorse the use of the MDRD equation for patients that are not between the ages of 18 and 70, are , have extremes of body size, muscle mass, or nutritional status, or are non- or non-. According to the National Kidney Foundation, irrespective of diagnosis, the stage of the disease is based on the level of kidney function: Stage Description GFR(mL/min/1.73 m(2)) 1 Kidney damage with normal or decreased GFR 90 2 Kidney damage with mild decrease in GFR 60-89 3 Moderate decrease in GFR 30-59 4 Severe decrease in GFR 15-29 5 Kidney failure <15 (or dialysis) Procedures Date Code Description Status 10/15/2019 70720 Holter Monitor Review (24 hr)dr review & interp only Completed 10/11/2019 56724 ECHO Transthoracic, Real-Time 2D With Doppler And Color Completed Flow 10/11/2019 33214 ECHO Transthoracic, Real-Time 2D With Doppler And Color Completed Flow 10/11/2019 21819 ECG Monitor/Recording W/Visual Superimposition Scanning Completed 10/11/2019 03853 ECG Monitor/Recording W/Visual Superimposition Scanning Completed 09/19/2019 94293 EKG Tracing & Interpretation Completed 03/31/2018 [id number] Mammogram Completed 04/06/2013 [id number] Colonoscopy Completed Medical Devices Description No Information Available Encounters Type Date Location Provider Dx Diagnosis Office Visit 09/19/2019 [facility] Danny Reyes I49.3 Ventricular premature 1:00p Of Becky Jensen, DO FACC depolarization I47.1 Supraventricular tachycardia I49.1 Atrial premature depolarization G47.33 Obstructive sleep apnea (adult) (pediatric) Assessments Date Code Description Provider 10/15/2019 I47.1 Supraventricular tachycardia Danny Jensen, DO FACC 10/11/2019 I47.1 Supraventricular tachycardia Danny Jensen, DO FACC 10/11/2019 I47.1 Supraventricular tachycardia Danny Jensen, DO FACC 10/11/2019 I47.1 Supraventricular tachycardia Nurse Visit IC 10/11/2019 I47.1 Supraventricular tachycardia Ica ECHO Schedule 10/04/2019 R53.83 Other fatigue Sandi Trevino NP 10/04/2019 F41.9 Anxiety disorder, unspecified Sandi Trevino, REHAB DIRECTOR OCCUPATIONAL THERAPIST 10/04/2019 K58.2 Mixed irritable bowel syndrome Sandi Trevino, REHAB DIRECTOR OCCUPATIONAL THERAPIST 10/04/2019 F33.9 Major depressive disorder, recurrent, Sandi Trevino, REHAB DIRECTOR OCCUPATIONAL THERAPIST unspecified 09/19/2019 I49.3 Ventricular premature depolarization Danny Jensen, DO [facility] 09/19/2019 I47.1 Supraventricular tachycardia Danny Jensen, DO FAC 09/19/2019 I49.1 Atrial premature depolarization Danny Jensen, DO FAC 09/19/2019 G47.33 Obstructive sleep apnea (adult) Danny Jensen, DO [facility] (pediatric) Plan of Treatment Future Appointment(s):11/07/2019 1:00 pm - Sandi [facility]ino NP at [facility]10/04/2019 - Sandi Trevino, NPR53.83 Other fatigueFollow up:Follow up in 4 weeks (45 minutes) Recommend reestablishing with Counseling - see handout for listed local therapist/counselors/psychiatrists Please join portal Labs at [facility] fasting - Checkout [email or web address] look at visual guides carb goal between 30-50 grams a day Great Cookbook:What the heck should I cook? Dr. Bryn Cutler (also has a great website) consider the 3 M' s - Mind set, Mindfulness, Movement daily practiceRecommendations:Fatigue is multi-factorial food sensitivities can play a role. An elimination diet is a validated approach to try to pin point food sensitivities. Increase healthy fats in the diet with cold pressed extra virgin olive oil, flax seed, hemp oil, fish oil (wild caught EPA/DHA). Nuts, seeds, avocado. Stress can play a large role in fatigue. Daily stress relaxation techniques. Sleep: sleeping 8 hours a day. Exercise: 30-60 minutes daily of exercise. Keeping your blood sugar stable removing high glycemic foods. Adrenal fatigue (HPA [place] dysregulation) - Lifestyle changes can make a difference. 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 Sleep is very important as is diet and exercise. Consider stress reduction techniques. Screening Tests: It is important to be up to date on your screening tests for your ageF41.9 Anxiety disorder, unspecifiedRecommendations:See handout Discussed returning to cavehsdvblB83.2 Mixed irritable bowel syndromeRecommendations:In the future we could consider elimination dietF33.9 Major depressive disorder, recurrent, unspecifiedRecommendations:continue current medications Exercise/movement daily Change to nutrient dense diet - whole foods removing processed foods and sugar. return to counseling Mindfulness based stress reduction. Daily breathing and meditation practice Functional Status Description No Information Available Mental Status Description No Information Available Referrals Description No Information Available
--- OUTSIDE RECORDS SUMMARY | 2019-11-11 10:20 | XMS REPORT | Continuity of Care Document ---
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 Problems Active Problems Provider Date Hyperlipidemia Onset: Bladder muscle dysfunction - Onset: overactive Obstructive sleep apnea syndrome Selma Lopez DNP, RN, Onset: 09/02/2017 SENIOUR INSIGHT MANAGER-BC Abnormal foetal heart beat, not Selma Lopez DNP, RN, Onset: 12/01/2017 clear if noted before OR after onset SENIOUR INSIGHT MANAGER-BC of labour in liveborn infant Body mass index 30+ - obesity Selma Lopez DNP, RN, Onset: 12/01/2017 SENIOUR INSIGHT MANAGER-BC Social History Type Date Description Comments Sex [...] Vomiting 05/10/2017 Latex Hives, itching, swelling 05/10/2017 [place] Juice Facial swelling, Itching, lip 10/04/2019 swelling/itching [...] Jensen, 09/19/2019 - 250mg every day DO [facility] 09/18/2019 Tablets Paroxetine HCL 1 by mouth every 30tabs Danny Jensen, 09/19/2019 - 20mg day DO [facility] 09/18/2019 Tablets Immunizations Description No Information Available [...] Result H/L Range Note CBC Auto 08/29/2019 White Blood 3.6 10^3/uL Normal 3.5-10.[address] [place] [address] [phone] Red Blood Count 3.98 10^6/uL Normal 3.70-4.87 [...] Blood Cells % 0.0 Basic Metabolic 08/29/2019 Sodium 139 mmol/L Normal 135-145 Panel [address] [place] [address] [phone] Potassium 4.0 mmol/L Normal 3.5-5.0 Chloride 105 mmol/L Normal 101-111 Co2 Carbon Dioxide 26 mmol/L Normal 22-32 Anion Gap 8 mmol/L Normal 2-11 Glucose 86 mg/dL Normal 70-100 Blood Urea Nitrogen 10 mg/dL Normal 6-24 Creatinine 0.99 mg/dL High 0.51-0.95 BUN/Creatinine Ratio 10.1 Normal 8-20 Calcium 9.2 mg/dL Normal 8.6-10.3 Egfr Non- 57.6 >60 Egfr 69.7 >60 1 Laboratory test 08/29/2019 Magnesium 1.9 mg/dL Normal 1.9-2.[address] [place] [address] [phone] TSH (Thyroid Stim Horm) 1.02 mcIU/mL Normal [...] dialysis) Procedures Date Code Description Status 10/15/2019 56276 Holter Monitor Review (24 hr) review & interp only Completed 10/11/2019 84026 ECHO Transthoracic, Real-Time 2D With Doppler And Color Completed Flow 10/11/2019 89307 ECG Monitor/Recording W/Visual Superimposition Scanning Completed 10/11/2019 91063 ECG Monitor/Recording W/Visual Superimposition Scanning Completed 09/19/2019 98805 EKG Tracing & Interpretation Completed 03/31/2018 [id number] Mammogram Completed 04/06/2013 [id number] Colonoscopy Completed Medical Devices Description No Information Available Encounters Type Date Location Provider Dx Diagnosis Office Visit 09/19/2019 [facility] Danny Reyes I49.3 Ventricular premature 1:00p Of Becky Jensen DO FACC depolarization I47.1 Supraventricular tachycardia I49.1 Atrial premature depolarization G47.33 Obstructive sleep apnea (adult) (pediatric) Assessments Date Code Description Provider 10/15/2019 I47.1 Supraventricular tachycardia Danny Jensen DO FACC 10/11/2019 I47.1 Supraventricular tachycardia Danny Jensen DO FACC 10/11/2019 I47.1 Supraventricular tachycardia Nurse Visit IC 10/11/2019 I47.1 Supraventricular tachycardia Ica ECHO Schedule 10/04/2019 R53.83 Other fatigue Sandi Trevino NP 10/04/2019 F41.9 Anxiety disorder, unspecified Sandi Trevino, YENIFER 10/04/2019 K58.2 Mixed irritable bowel syndrome Sandi Trevino, YENIFER 09/19/2019 I49.3 Ventricular premature depolarization Danny Jensen, DO [facility] 09/19/2019 I47.1 Supraventricular tachycardia Danny Jensen, DO [facility] 09/19/2019 I49.1 Atrial premature depolarization Danny Jensen, DO [facility] 09/19/2019 G47.33 Obstructive sleep apnea (adult) Danny Jensen, DO [facility] (pediatric) Plan of Treatment Future Appointment(s):11/07/2019 1:00 pm - Sandi Trevino NP at [facility]10/04/2019 - Sandi Trevino, NPR53.83 Other fatigueFollow up:Follow up in 4 weeks (45 minutes) Recommend reestablishing with Counseling Please join portal Labs at [facility] fasting - Check out [email or web address] look at visual guides carb goal between 30-50 grams a day * *Great Cookbook: What the heck should I cook? Dr. Bryn Cutler (also has a great website) consider the 3 M's - Mind set, Mindfulness, Movement daily practiceRecommendations:Fatigue [...] removing high glycemic foods. Adrenal fatigue (HPA [place] dysregulation) - Lifestyle changes can make a difference. 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 Sleep is very important as is diet and exercise. Consider stress reduction techniques. Screening Tests: It is important to be up to date on your screening tests for your ageF41.9 Anxiety disorder, zwlnukzcokcY97.2 Mixed irritable bowel syndrome Functional Status Description No Information Available Mental Status Description No Information Available Referrals Description No Information Available
--- OUTSIDE RECORDS SUMMARY | 2019-11-11 10:20 | XMS REPORT | Continuity of Care Document ---
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-BC of labour in liveborn infant Body mass index 30+ - obesity Selma Lopez DNP, RN, Onset: 12/01/2017 ASSEMBLY MACHINE TOOL SETTER-BC Social History Type Date Description Comments Sex Unknown Tobacco Use Start: Unknown Never Smoked Cigarettes Smoking Status Reviewed: 12/01/17 Never Smoked Cigarettes ETOH Use Drinks 2 Alcoholic Beverages Per Week Tobacco Use Start: Unknown Patient has never Exposed to second smoked hand smoke Recreational Drug Use Denies Drug Use Exercise Type/Frequency Exercises regularly Allergies, Adverse Reactions, Alerts Active Allergies Reaction Severity Comments Date Penicillin Hives, swelling 05/10/2017 Keflex 05/10/2017 Erythromycin Nausea and Vomiting 05/10/2017 Latex Hives, itching, swelling 05/10/2017 Medications Active Medications SIG Qnty Indications Ordering Provider Date Bupropion HCL ER (XL) 1 by mouth [...] Vitamin D3 1 by mouth every Unknown 2000Unit day Capsules Fexofenadine HCL once daily Unknown 180mg Tablets Glucosamine 2 by mouth every Unknown Chondroitin day Capsules Melatonin 1 cap at bedtime Unknown 5mg Capsules Omeprazole 1 by mouth every Unknown 20mg Capsules day DR Lara Description No Information Available Vital Signs Date Vital Result Comment 12/01/2017 1:25pm Height 66 inches 5'6" Weight 206.38 lb Heart Rate 70 /min BP Systolic Sitting 142 mmHg Rue large cuff BP Diastolic Sitting 98 mmHg Rue large cuff Respiratory Rate 12 /min O2 % BldC Oximetry 97 % BMI (Body Mass Index) 33.3 kg/m2 09/02/2017 9:28am Height 66 inches 5'6" Weight 207.00 lb Heart Rate 68 /min BP Systolic Sitting 122 mmHg BP Diastolic Sitting 72 mmHg Respiratory Rate 14 /min BMI (Body Mass Index) 33.4 kg/m2 Results Test Acquired Date Facility Test Result H/L Range Note CBC Auto 08/29/2019 [facility] White Blood 3.6 10^3/uL Normal 3.5-10.[address] [place] [address] [phone] Red Blood Count 3.98 10^6/uL Normal 3.70-4.87 [...] Blood Cells % 0.0 Basic Metabolic 08/29/2019 [facility] Sodium 139 mmol/L Normal 135-145 Panel [address] [place] [address] [phone] Potassium 4.0 mmol/L Normal 3.5-5.0 Chloride 105 mmol/L Normal 101-111 Co2 Carbon Dioxide 26 mmol/L Normal 22-32 Anion Gap 8 mmol/L Normal 2-11 Glucose 86 mg/dL Normal 70-100 Blood Urea Nitrogen 10 mg/dL Normal 6-24 Creatinine 0.99 mg/dL High 0.51-0.95 BUN/Creatinine Ratio 10.1 Normal 8-20 Calcium 9.2 mg/dL Normal 8.6-10.3 Egfr Non- 57.6 >60 Egfr 69.7 >60 1 Laboratory test 08/29/2019 [facility] Magnesium 1.9 mg/dL Normal 1.9-2.7 finding [address] [place] [address] [phone] TSH (Thyroid Stim Horm) 1.02 mcIU/mL Normal [...] 5 Kidney failure <15 (or dialysis) Procedures Description No Information Available Medical Devices Description No Information Available Encounters Description No Information Available Assessments Description No Information Available Plan of Treatment 12/01/2017 - Selma Lopez DNP, RN, ASSEMBLY MACHINE TOOL SETTER-BCG47.33 Obstructive sleep apnea ( adult) (pediatric)Comments:Sleep Apnea - AHI 32.1/hour, worse supine 57.4/hour , jac oxygen 79%. On CPAP AHI 9.7/hourFollow up:3 monthsRecommendations: Continue PAP device, Benefitting and compliant with treatment. Cleaning Wipe off mask daily (baby wipe-no scent, or warm water) Clean mask, tubing, filter, and water chamber weekly in mild no scent dish soap and water. Hang to dry. So -Clean is an option (not covered by insurance) If you have any sleepiness while driving you MUST avoid operating a vehicle or machinery. If you have difficulty with your equipment, or need to replace your mask or hoses, please contact your homecare agency. A weight change of 20 pounds or more may have an effect on your equipment; if you are experiencing problems please call for an appointment. If you have any further questions, please call the [facility] at [phone].R09.02 HypoxemiaRecommendations:Should improve on CPAP auto.R00.9 Unspecified abnormalities of heart beatComments:BP 142/ 98Recommendations:Complaints of chest discomfort over the past few weeks (left chest) Irregular heart beat, new to pt. To go to ER for evaluation.Z68.33 Body mass index (BMI) 33.0-33.9, adultRecommendations:Continue with exercise and weight loss efforts. Functional Status Description No Information Available Mental Status Description No Information Available Referrals Description No Information Available
--- OUTSIDE RECORDS SUMMARY | 2019-11-11 10:20 | XMS REPORT | Continuity of Care Document ---
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 Problems Active Problems Provider Date Hyperlipidemia Onset: Bladder muscle dysfunction - Onset: overactive Obstructive sleep apnea syndrome Selma Lopez DNP, RN, Onset: 09/02/2017 SHANK STAPLER-BC Abnormal foetal heart beat, not Selma Lopez DNP, RN, Onset: 12/01/2017 clear if noted before OR after onset SHANK STAPLER-BC of labour in liveborn Body mass index 30+ - obesity Selma Lopez DNP, RN, Onset: 12/01/2017 SHANK STAPLER-BC Social History Type Date Description Comments Sex [...] Vomiting 05/10/2017 Latex Hives, itching, swelling 05/10/2017 [place] Juice Facial swelling, Itching, lip 10/04/2019 swelling/itching [...] Jensen, 09/19/2019 - 250mg every day DO [facility] 09/18/2019 Tablets Paroxetine HCL 1 by mouth every 30tabs Danny Jensen, 09/19/2019 - 20mg day DO [facility] 09/18/2019 Tablets Immunizations Description No Information [...] Result H/L Range Note CBC Auto 08/29/2019 [facility] White Blood 3.6 10^3/uL Normal 3.5-10.[address] [place] [address] [phone] Red Blood Count 3.98 10^6/uL Normal 3.70-4.87 [...] Blood Cells % 0.0 Basic Metabolic 08/29/2019 [facility] Sodium 139 mmol/L Normal 135-145 Panel [address] [place] [address] [phone] Potassium 4.0 mmol/L Normal 3.5-5.0 Chloride 105 mmol/L Normal 101-111 Co2 Carbon Dioxide 26 mmol/L Normal 22-32 Anion Gap 8 mmol/L Normal 2-11 Glucose 86 mg/dL Normal 70-100 Blood Urea Nitrogen 10 mg/dL Normal 6-24 Creatinine 0.99 mg/dL High 0.51-0.95 BUN/Creatinine Ratio 10.1 Normal 8-20 Calcium 9.2 mg/dL Normal 8.6-10.3 Egfr Non- 57.6 >60 Egfr 69.7 >60 1 Laboratory test 08/29/2019 [facility] Magnesium 1.9 mg/dL Normal 1.9-2.7 finding [address] [place] [address] [phone] TSH (Thyroid Stim Horm) 1.02 mcIU/mL Normal [...] (or dialysis) Procedures Date Code Description Status 09/19/2019 53727 EKG Tracing & Interpretation Completed 03/31/2018 [id number] Mammogram Completed 04/06/2013 [id number] Colonoscopy Completed Medical Devices Description No Information Available Encounters Type Date Location Provider Dx Diagnosis Office Visit 09/19/2019 [facility] Danny Reyes I49.3 Ventricular premature 1:00p Of Becky Jensen DO [facility] depolarization I47.1 Supraventricular tachycardia I49.1 Atrial premature depolarization G47.33 Obstructive sleep apnea (adult) (pediatric) Assessments Date Code Description Provider 10/04/2019 R53.83 Other fatigue Sandi Trevino NP 10/04/2019 F41.9 Anxiety disorder, unspecified Sandi Trevino NP 10/04/2019 K58.2 Mixed irritable bowel syndrome Sandi Trevino NP 09/19/2019 I49.3 Ventricular premature depolarization Danny Jensen DO [facility] 09/19/2019 I47.1 Supraventricular tachycardia Danny Jensen DO [facility] 09/19/2019 I49.1 Atrial premature depolarization Danny Jensen DO [facility] 09/19/2019 G47.33 Obstructive sleep apnea (adult) Danny Jensen DO [facility] (pediatric) Plan of Treatment Future Appointment(s):10/12/2019 11:00 am - Nurse Visit IC at [facility]10/11/2019 11:30 am - Nurse Visit IC at [facility]2019 11:00 am - Ica ECHO Schedule at [facility]10/04/2019 - Sandi Trevino, NPR53.83 Other fatigueFollow up:Follow up in 4 weeks (45 minutes) Recommend reestablishing with Counseling Please join portal Labs at [facility] fasting - Check out [email or web address] look at visual guides carb goal between 30-50 grams a day Great Cookbook: What the heck should I cook? [...] removing high glycemic foods. Adrenal fatigue (HPA [place] dysregulation) - Lifestyle changes can make a difference. 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 Sleep is very important as is diet and exercise. Consider stress reduction techniques. Screening Tests: It is important to be up to date on your screening tests for your ageF41.9 Anxiety disorder, duhtofzncdnU30.2 Mixed irritable bowel syndrome Functional Status Description No Information Available Mental Status Description No Information Available Referrals Description No Information Available
--- OUTSIDE RECORDS SUMMARY | 2019-11-11 10:20 | XMS REPORT | Continuity of Care Document ---
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 Abnormal foetal heart beat, not Selma Lopez DNP, RN, Onset: 12/01/2017 clear if noted before OR after onset 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-BC of labour in liveborn Body mass index 30+ - obesity Selma Lopez DNP, RN, Onset: 12/01/2017 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 [place] [address] [phone] Red Blood Count 3.98 10^6/uL Normal 3.70-4.87 [...] Blood Cells % 0.0 Basic Metabolic 08/29/2019 [facility] Sodium 139 mmol/L Normal 135-[address] [place] [address] [phone] Potassium 4.0 mmol/L Normal 3.5-5.0 Chloride 105 mmol/L Normal 101-111 Co2 Carbon Dioxide 26 mmol/L Normal 22-32 Anion Gap 8 mmol/L Normal 2-11 Glucose 86 mg/dL Normal 70-100 Blood Urea Nitrogen 10 mg/dL Normal 6-24 Creatinine 0.99 mg/dL High 0.51-0.95 BUN/Creatinine Ratio 10.1 Normal 8-20 Calcium 9.2 mg/dL Normal 8.6-10.3 Egfr Non- 57.6 >60 Egfr 69.7 >60 1 Laboratory test 08/29/2019 [facility] Magnesium 1.9 mg/dL Normal 1.9-2.[address] [place] [address] [phone] TSH (Thyroid Stim Horm) 1.02 mcIU/mL Normal [...] dialysis) Procedures Date Code Description Status 10/15/2019 41152 Holter Monitor Review (24 hr)dr review & interp only Completed 10/11/2019 24025 ECHO Transthoracic, Real-Time 2D With Doppler And Color Completed Flow 10/11/2019 25597 ECG Monitor/Recording W/Visual Superimposition Scanning Completed 10/11/2019 76637 ECG Monitor/Recording W/Visual Superimposition Scanning Completed 09/19/2019 20600 EKG Tracing & Interpretation Completed 03/31/2018 [id number] Mammogram Completed 04/06/2013 [id number] Colonoscopy Completed Medical Devices Description No Information Available Encounters Type Date Location Provider Dx Diagnosis Office Visit 09/19/2019 [facility] Danny Reyes I49.3 Ventricular premature 1:00p [...] ECHO Schedule 10/04/2019 R53.83 Other fatigue Sandi Trevino, YENIFER 10/04/2019 F41.9 Anxiety disorder, unspecified Sandi Trevino, 6TH GRADE TEACHER 10/04/2019 K58.2 Mixed irritable bowel syndrome Sandi Trevino, YENIFER 09/19/2019 I49.3 Ventricular premature depolarization Danny Jensen, DO [facility] 09/19/2019 I47.1 Supraventricular tachycardia Danny Jensen, DO [facility] 09/19/2019 I49.1 Atrial premature depolarization Danny Jensen, DO [facility] 09/19/2019 G47.33 Obstructive sleep apnea (adult) Danny Jensen, DO [facility] (pediatric) Plan of Treatment Future Appointment(s):11/07/2019 1:00 pm - Sandi Trevino NP at [facility]10/04/2019 - Sandi Trevino, NPR53.83 Other fatigueFollow up:Follow up in 4 weeks (45 minutes) Recommend reestablishing with Counseling Please join portal Labs at [facility] fasting - Check out [email or web address] look at visual guides carb goal between [...] removing high glycemic foods. Adrenal fatigue (HPA [place] dysregulation) - Lifestyle changes can make a difference. 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 Sleep is very important as is diet and exercise. Consider stress reduction techniques. Screening Tests: It is important to be up to date on your screening tests for your ageF41.9 Anxiety disorder, ohbwcgqhqguI33.2 Mixed irritable bowel syndrome Functional Status Description No Information Available Mental Status Description No Information Available Referrals Description No Information Available
--- OUTSIDE RECORDS SUMMARY | 2019-11-11 10:20 | XMS REPORT | Continuity of Care Document ---
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 09/18/2019 Tablets Paroxetine HCL 1 by mouth every 30tabs Danny Jensen, 09/19/2019 - 20mg day DO [facility] 09/18/2019 Tablets Immunizations Description No [...] Result H/L Range Note CBC Auto 08/29/2019 [facility] White Blood 3.6 10^3/uL Normal 3.5-10.[address] [place] [address] [phone] Red Blood Count 3.98 10^6/uL Normal 3.70-4.87 [...] Blood Cells % 0.0 Basic Metabolic 08/29/2019 [facility] Sodium 139 mmol/L Normal 135-145 Panel [address] [place] [address] [phone] Potassium 4.0 mmol/L Normal 3.5-5.0 Chloride 105 mmol/L Normal 101-111 Co2 Carbon Dioxide 26 mmol/L Normal 22-32 Anion Gap 8 mmol/L Normal 2-11 Glucose 86 mg/dL Normal 70-100 Blood Urea Nitrogen 10 mg/dL Normal 6-24 Creatinine 0.99 mg/dL High 0.51-0.95 BUN/Creatinine Ratio 10.1 Normal 8-20 Calcium 9.2 mg/dL Normal 8.6-10.3 Egfr Non- 57.6 >60 Egfr 69.7 >60 1 Laboratory test 08/29/2019 [facility] Magnesium 1.9 mg/dL Normal 1.9-2.7 finding [address] [place] [address] [phone] TSH (Thyroid Stim Horm) 1.02 mcIU/mL Normal [...] dialysis) Procedures Date Code Description Status 10/15/2019 60298 Holter Monitor Review (24 hr)dr elida & interp only Completed 10/11/2019 34395 ECHO Transthoracic, Real-Time 2D With Doppler And Color Completed Flow 10/11/2019 88721 ECHO Transthoracic, Real-Time 2D With Doppler And Color Completed Flow 10/11/2019 13395 ECG Monitor/Recording W/Visual Superimposition Scanning Completed 10/11/2019 48241 ECG Monitor/Recording W/Visual Superimposition Scanning Completed 09/19/2019 60050 EKG Tracing & Interpretation Completed 03/31/2018 [id number] Mammogram Completed 04/06/2013 [id number] Colonoscopy Completed Medical Devices Description No Information Available Encounters Type Date Location Provider Dx Diagnosis Office Visit 10/04/2019 [facility] Sandi Trevino NP R53.83 Other fatigue 8:00a [facility] F41.9 Anxiety disorder, unspecified K58.2 Mixed irritable bowel syndrome F33.9 Major depressive disorder, recurrent, unspecified Office Visit 09/19/2019 1:00p Pauline Reyes I49.3 Ventricular Cardiology Of DO jevon Jensen [facility] FACC depolarization I47.1 Supraventricular tachycardia I49.1 Atrial premature depolarization G47.33 Obstructive sleep apnea (adult) (pediatric) Assessments Date Code Description Provider 10/15/2019 I47.1 Supraventricular tachycardia Danny Reyes Jensen, DO [facility]AC 10/11/2019 I47.1 Supraventricular tachycardia Danny SNaomi Jensen, DO FACC 10/11/2019 I47.1 Supraventricular tachycardia Danny SNaomi Jensen, DO [facility] 10/11/2019 I47.1 Supraventricular tachycardia Nurse Visit IC 10/11/2019 I47.1 Supraventricular tachycardia Ica ECHO Schedule 10/04/2019 R53.83 Other fatigue Sandi Trevino, FIBERGLASS AUTO BODY REPAIRER 10/04/2019 F41.9 Anxiety disorder, unspecified Sandi Trevino, FIBERGLASS AUTO BODY REPAIRER 10/04/2019 K58.2 Mixed irritable bowel syndrome Sandi Trevino, FIBERGLASS AUTO BODY REPAIRER 10/04/2019 F33.9 Major depressive disorder, recurrent, Sandi Trevino, FIBERGLASS AUTO BODY REPAIRER unspecified 09/19/2019 I49.3 Ventricular premature depolarization Danny Jensen, DO [facility] 09/19/2019 I47.1 Supraventricular tachycardia Danny SNaomi Jensen, DO [facility] 09/19/2019 I49.1 Atrial premature depolarization Danny Jensen, DO [facility] 09/19/2019 G47.33 Obstructive sleep apnea (adult) Danny Jensen, DO [facility] (pediatric) Plan of Treatment Future Appointment(s):01/21/2020 11:00 am - Sandi Trevino NP at [facility]10/04/2019 - Sandi Trevino, NPR53.83 Other fatigueFollow up:Follow up in 4 weeks (45 minutes) Recommend reestablishing with Counseling - see handout for listed local therapist/counselors/psychiatrists Please join portal Labs at [facility] fasting - Checkout [email or web address] look at visual guides carb goal between [...] removing high glycemic foods. Adrenal fatigue (HPA [place] dysregulation) - Lifestyle changes can make a difference. 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 Sleep is very important as is diet and exercise. Consider stress reduction techniques. Screening Tests: It is important to be up to date on your screening tests for your ageF41.9 Anxiety disorder, unspecifiedRecommendations:See handout Discussed returning to qfierjljafY60.2 Mixed irritable bowel syndromeRecommendations:In the future we [...]
--- OUTSIDE RECORDS SUMMARY | 2019-11-11 10:20 | XMS REPORT | Continuity of Care Document ---
:1960 External Reference #:[id number] Author Name Danny Jensen, DO FACC (transmitted by agent of provider Barbara Watts) Address [address] 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 09/18/2019 Tablets Paroxetine HCL 1 by mouth every 30tabs Danny Jensen, 09/19/2019 - 20mg day DO [facility] 09/18/2019 Tablets Immunizations Description No Information Available Vital Signs Date Vital Result Comment 09/19/2019 12:54pm Height 66 inches 5'6" Weight [...] Mass Index) 32.6 kg/m2 Ejection Fraction none 12/01/2017 1:25pm Height 66 inches 5'6" Weight 206.38 lb Heart Rate 70 /min BP Systolic Sitting 142 mmHg Rue large cuff BP Diastolic Sitting 98 mmHg Rue large cuff Respiratory Rate 12 /min O2 % BldC Oximetry 97 % BMI (Body Mass Index) 33.3 kg/m2 Results Test Acquired Date Facility Test Result H/L Range Note CBC Auto 08/29/2019 [facility] White Blood 3.6 10^3/uL Normal 3.5-10.[address] [place] [address] [phone] Red Blood Count 3.98 10^6/uL Normal 3.70-4.87 [...] Blood Cells % 0.0 Basic Metabolic 08/29/2019 [facility] Sodium 139 mmol/L Normal 135-145 Panel [address] [place] [address] [phone] Potassium 4.0 mmol/L Normal 3.5-5.0 Chloride 105 mmol/L Normal 101-111 Co2 Carbon Dioxide 26 mmol/L Normal 22-32 Anion Gap 8 mmol/L Normal 2-11 Glucose 86 mg/dL Normal 70-100 Blood Urea Nitrogen 10 mg/dL Normal 6-24 Creatinine 0.99 mg/dL High 0.51-0.95 BUN/Creatinine Ratio 10.1 Normal 8-20 Calcium 9.2 mg/dL Normal 8.6-10.3 Egfr Non- 57.6 >60 Egfr 69.7 >60 1 Laboratory test 08/29/2019 [facility] Magnesium 1.9 mg/dL Normal 1.9-2.7 finding [address] [place] [address] [phone] TSH (Thyroid Stim Horm) 1.02 mcIU/mL Normal [...] dialysis) Procedures Date Code Description Status 09/19/2019 47673 EKG Tracing & Interpretation Completed Medical Devices Description No Information Available Encounters Description No Information Available Assessments Date Code Description Provider 09/19/2019 I49.3 Ventricular premature depolarization Danny Jensen DO [facility] 09/19/2019 I47.1 Supraventricular tachycardia Danny Jensen DO [facility] 09/19/2019 I49.1 Atrial premature depolarization Danny Jensen DO [facility] 09/19/2019 G47.33 Obstructive sleep apnea (adult) Danny Jensen DO [facility] (pediatric) Plan of Treatment Future Appointment(s):10/12/2019 11:00 am - Nurse Visit IC at [facility]10/11/2019 11:30 am - Nurse Visit IC at [facility]2019 11:00 am - Ica ECHO Schedule at [facility]09/19/2019 - Danny Jensen DO FACCI49.3 Ventricular premature depolarizationComments:Your magnesium level was 1.9. You can picker / packer an OTC supplement such as magnesium oxide 400 mg to take once or twice daily to try to get your level at 2 or greater Eliminating alcohol would greatly help your heart and overall health. Drink 1/2 of what you are drinking now and then stop altogether.Start taking metoprololWait a few weeks and schedule a holter heart monitor to see if the above was helpfulFollow up:f/u prnI47.1 Supraventricular tachycardiaNew Medication:Metoprolol Succinate ER 25 mg - 1 by mouth every dayNew Orders: Echocardiogram, Ordered: 09/19/19Holter Monitor, Ordered: 09/19/19I49.1 Atrial premature phngztarmegnfaL06.33 Obstructive sleep apnea (adult) (pediatric) Functional Status Description No Information Available Mental Status Description No Information Available Referrals Description No Information Available
--- OUTSIDE RECORDS SUMMARY | 2019-11-11 10:20 | XMS REPORT | Continuity of Care Document ---
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 Problems Active Problems Provider Date Hyperlipidemia Onset: Bladder muscle dysfunction - Onset: overactive Obstructive sleep apnea syndrome Selma Lopez DNP, RN, Onset: 09/02/2017 SOLUTION SPEC-BC Abnormal foetal heart beat, not Selma Lopez DNP, RN, Onset: 12/01/2017 clear if noted before OR after onset SOLUTION SPEC-BC of labour in liveborn infant Body mass index 30+ - obesity Selma Lopez DNP, RN, Onset: 12/01/2017 SOLUTION SPEC-BC Social History Type Date Description Comments Sex [...] Vomiting 05/10/2017 Latex Hives, itching, swelling 05/10/2017 [place] Juice Facial swelling, Itching, lip 10/04/2019 swelling/itching [...] Jensen, 09/19/2019 - 250mg every day DO [facility] 09/18/2019 Tablets Paroxetine HCL 1 by mouth every 30tabs Danny Jensen, 09/19/2019 - 20mg day DO [facility] 09/18/2019 Tablets Immunizations Description No Information [...] Result H/L Range Note CBC Auto 08/29/2019 [facility] White Blood 3.6 10^3/uL Normal 3.5-10.[address] [place] [address] [phone] Red Blood Count 3.98 10^6/uL Normal 3.70-4.87 [...] Blood Cells % 0.0 Basic Metabolic 08/29/2019 [facility] Sodium 139 mmol/L Normal 135-145 Panel [address] [place] [address] [phone] Potassium 4.0 mmol/L Normal 3.5-5.0 Chloride 105 mmol/L Normal 101-111 Co2 Carbon Dioxide 26 mmol/L Normal 22-32 Anion Gap 8 mmol/L Normal 2-11 Glucose 86 mg/dL Normal 70-100 Blood Urea Nitrogen 10 mg/dL Normal 6-24 Creatinine 0.99 mg/dL High 0.51-0.95 BUN/Creatinine Ratio 10.1 Normal 8-20 Calcium 9.2 mg/dL Normal 8.6-10.3 Egfr Non- 57.6 >60 Egfr 69.7 >60 1 Laboratory test 08/29/2019 [facility] Magnesium 1.9 mg/dL Normal 1.9-2.7 finding [address] [place] [address] [phone] TSH (Thyroid Stim Horm) 1.02 mcIU/mL Normal [...] dialysis) Procedures Date Code Description Status 10/15/2019 29958 Holter Monitor Review (24 hr)dr review & interp only Completed 10/11/2019 46278 ECHO Transthoracic, Real-Time 2D With Doppler And Color Completed Flow 10/11/2019 38046 ECHO Transthoracic, Real-Time 2D With Doppler And Color Completed Flow 10/11/2019 11668 ECG Monitor/Recording W/Visual Superimposition Scanning Completed 10/11/2019 34595 ECG Monitor/Recording W/Visual Superimposition Scanning Completed 09/19/2019 64985 EKG Tracing & Interpretation Completed 03/31/2018 [id number] Mammogram Completed 04/06/2013 [id number] Colonoscopy Completed Medical Devices Description No Information Available Encounters Type Date Location Provider Dx Diagnosis Office Visit 09/19/2019 [facility] Danny Reyes I49.3 Ventricular premature 1:00p [...] 10/04/2019 F41.9 Anxiety disorder, unspecified Sandi Trevino, CLINIC LPN 10/04/2019 K58.2 Mixed irritable bowel syndrome Sandi Trevino, YENIFER 09/19/2019 I49.3 Ventricular premature depolarization Danny Jensen, DO [facility] 09/19/2019 I47.1 Supraventricular tachycardia Danny Jensen, DO [facility] 09/19/2019 I49.1 Atrial premature depolarization Danny Jensen, DO [facility]AC 09/19/2019 G47.33 Obstructive sleep apnea (adult) Danny Jensen, DO [facility] (pediatric) Plan of Treatment Future Appointment(s):11/07/2019 1:00 pm - Sandi Trevino CLINIC LPN at [facility]10/04/2019 - Sandi Trevino, NPR53.83 Other fatigueFollow up:Follow up in 4 weeks (45 minutes) Recommend reestablishing with Counseling Please join portal Labs at [facility] fasting - Check out [email or web address] look at visual guides carb goal between [...] removing high glycemic foods. Adrenal fatigue (HPA [place] dysregulation) - Lifestyle changes can make a difference. 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 Sleep is very important as is diet and exercise. Consider stress reduction techniques. Screening Tests: It is important to be up to date on your screening tests for your ageF41.9 Anxiety disorder, iqhagmwqohcT64.2 Mixed irritable bowel syndrome Functional Status Description No Information Available Mental Status Description No Information Available Referrals Description No Information Available
[2019-11-11 10:42] VITALS: BP 133/89
--- NOTE | 2019-11-11 11:55 | UC ---
General HPI - HPI Summary HPI Summary: 58yo female with PMHx of depression and SAD presenting with request for refill of her buproprion, prozac, and montelukast. States she recently lost insurance and is in the process of looking for a new pcp and would like referrals today. States the last couple months, she has [facility] refills [facility]. Patient also states she would like information on counseling services in the area. Denies homicidal ideations. She does admit to "thinking about what the world would be like if I was not here." States she has had these thoughts "on and off for many years." Denies any plans to harm herself. Does not wish to harm herself nor does she have any suicidal thoughts today. States she feels "pretty good today." Patient states that she would like counseling that will also help her with her drinking. States she has been drinking 6 shots every night "for a while now because it's fun but now I think I may be relying on it too much." States she does not feel like she couldn't stop if she really wanted to. Also h/o hypertension. Was seeing Dr. Berrios but now seeing Sandi Trevino NP but has had appt pushed back to December d/t covid. - History of Current Complaint Chief Complaint: UCMedRefill Stated Complaint: MED REFILL Hx Obtained From: Patient Pain Intensity: 3 - Allergy/Home Medications Allergies/Adverse Reactions: Allergies Allergy/AdvReac Type Severity Reaction Status Date / Time ampicillin Allergy Unknown Verified 11/11/19 10:28 Reaction Details cat dander Allergy Eyes Verified 11/11/19 10:29 Itchy/Swollen/Red/Watery cephalexin Allergy Unknown Verified 11/11/19 10:28 Reaction Details erythromycin base Allergy Unknown Verified 11/11/19 10:28 [From Erythrocin] Reaction Details grass pollen Allergy Difficulty Verified 11/11/19 10:29 Breathing latex Allergy Unknown Verified 11/11/19 10:28 Reaction Details mold Allergy Eyes Verified 11/11/19 10:29 Itchy/Swollen/Red/Watery penicillin G Allergy Unknown Verified 11/11/19 10:28 Reaction Details soy Allergy Eyes Verified 11/11/19 10:29 Itchy/Swollen/Red/Watery oatmeal Allergy GI Upset Uncoded 11/11/19 10:29 stone fruits Allergy Swelling Uncoded 11/11/19 10:28 Of Face,Lips,& Throat Home Medications: Home Medications Montelukast Sodium TAB* [Singulair 10 MG TAB*] 10 mg PO BEDTIME 04/05/13 [ History Confirmed 11/11/19] Bupropion XL (NF) [Wellbutrin XL 300 MG (NF)] 300 mg PO DAILY 08/19/16 [History Confirmed 11/11/19] Cholecalciferol (Vitamin D3) [Vitamin D3] 2,000 unit PO DAILY 12/01/17 [History Confirmed 11/11/19] Cyanocobalamin (Vitamin B-12) [Vitamin B-12] 2,500 mcg SL DAILY 12/01/17 [ History Confirmed 11/11/19] Ferrous Sulfate [Slow Release Iron] 143 mg PO DAILY 12/01/17 [History Confirmed 11/11/19] Fexofenadine (NF) [Whitney 180 (NF)] 180 mg PO DAILY 12/01/17 [History Confirmed 11/11/19] Simvastatin TAB(NF) [Zocor(NF)] 20 mg PO DAILY 12/01/17 [History Confirmed 11/10] Melatonin/Pyridoxine HCl (B6) [Melatonin 3 mg Tablet] 1.5 each PO BEDTIME PRN [History Confirmed 11/11/19] Omeprazole CAP (NF) [Prilosec CAP* 20 MG] 20 mg PO DAILY 04/24/19 [History Confirmed 11/11/19] BuPROPion XL* [Bupropion XL*] 300 mg PO DAILY #14 tab.xl 11/11/19 [Rx] FLUoxetine CAP* [PROzac CAP*] 40 mg PO DAILY #30 cap 11/11/19 [Rx] FLUoxetine CAP* [Prozac CAP*] 1 tab PO DAILY 11/11/19 [History Confirmed ] Metoprolol Succinate 1 tab PO DAILY 11/11/19 [History Confirmed 11/11/19] Montelukast Sodium TAB* [Singulair 10 MG TAB*] 10 mg PO BEDTIME #30 tab [Rx] PMH/Surg Hx/FS Hx/Imm Hx Cardiovascular History: Hypertension Psychological History: Depression, Other - seasonal affective disorder - Surgical History Surgical History: Yes Surgery Procedure, Year, and Place: abcess in throat removed approx 2006 - Family History Known Family History: Negative: Cardiac Disease, Respiratory Disease, Seizure Disorder - Social History Alcohol Use: Daily Alcohol Amount: 6 shots at nighttime Substance Use Type: None Smoking Status (MU): Never Smoked Tobacco Household Exposure Type: Cigarettes Review of Systems All Other Systems Reviewed And Are Negative: Yes Constitutional: Positive: Negative Respiratory: Positive: Negative Cardiovascular: Positive: Negative Gastrointestinal: Positive: Negative Neurological/Mental Status: Positive: Negative Psychological: Positive: Depressed Physical Exam - Summary Physical Exam Summary: Vital Signs Reviewed: Yes A+Ox3, no distress, well-appearing Eyes: Conjunctiva Clear ENT: Hearing grossly normal neck: supple Respiratory: Positive: No respiratory distress, No accessory muscle use Cardiovascular: skin color reflect adequate perfusion Musculoskeletal Exam: FERGUSON x 4 without difficulty Neurological: Positive: Alert, ambulatory without difficulty Psychological: Positive: age appropriate behavior, normal affect Skin: Positive: no rash, no ecchymosis Vital Signs: Initial Vital Signs Temp 97.0 F 11/11/19 10:19 Pulse 59 11/11/19 10:19 Resp 18 11/11/19 10:19 BP 133/89 11/11/19 10:19 Pulse Ox 95 11/11/19 10:19 Course/Dx - Course Course Of Treatment: I provided patient with 2 weeks worth of prozac and buproprion after checking her last refills at pharmacy and instructed to take as prescribed. I also provided with prescription for singulair since she states her insurance covers it. I instructed to contact the physician referral given to her so that she can establish with primary care if she decides she does not wish to go back to Dr. Berrios, which she said is a possibility. Patient without suicidal ideations today and I do not believe she is at risk of harming herself. I counseled on depression and cessation of alcohol use. Also provided patient with mental health and couseling services in the area that are available to her to contact. - Diagnoses Provider Diagnosis: Encounter for medication refill, Depression Discharge ED - Sign-Out/Discharge Documenting (check all that apply): Patient Departure All imaging exams completed and their final reports reviewed: No Studies - Discharge Plan Condition: Stable Disposition: HOME Prescriptions: BuPROPion XL* [Bupropion XL*] 300 mg PO DAILY #14 tab.xl FLUoxetine CAP* [PROzac CAP*] 40 mg PO DAILY #30 cap Montelukast Sodium TAB* [Singulair 10 MG TAB*] 10 mg PO BEDTIME #30 tab Patient Education Materials: Depression (ED), Allergies (ED) Referrals: [facility] [place] [facility] [Outside] [facility] [place] - Residential Facility [Outside] Sandi Trevino NP [Primary Care Provider] - [facility] [Outside] Additional Instructions: Continue to take medications as prescribed. You will need to follow up with primary care for your next prescription refills. Follow up with Dr. Berrios, or you may contact the physician referral listed below to establish with a new primary care provider. You may also contact [facility], or any of the other counseling services provided to you today. - Billing Disposition and Condition Condition: STABLE Disposition: Home
== END 2019-11-11 11:42 | disposition home or self-care (01) ==
LOC: UCEAST 10:14
DX: F32.9 Major depressive disorder, single episode, unspecified (principal); Z76.0 Encounter for issue of repeat prescription; I10 Essential (primary) hypertension; Z79.899 Other long term (current) drug therapy; Z88.1 Allergy status to other antibiotic agents; Z91.040 Latex allergy status; Z88.0 Allergy status to penicillin; Z91.018 Allergy to other foods; Z91.09 Other allergy status, other than to drugs and biological substances
CPT/HCPCS: 99212; G0463